=== PATIENT | male | born 1995 | race African-American/Black ===

== ENCOUNTER → 2017-07-23 | Emergency (ER) | payer MEDICAID ==
[~2017-07-23] VITALS: Ht 188 cm; Wt 81.6 kg
[~2017-07-23] MED LIST: NKM
[2017-07-23 15:22] VITALS: BP 125/69
== END | disposition left against medical advice (07) ==
LOC: EMR 14:40
DX: R50.9 Fever, unspecified (principal); Z53.21 Procedure and treatment not carried out due to patient leaving prior to being seen by health care provider
CPT/HCPCS: 99282